=== PATIENT | female | born 1985 | race Caucasian/White ===

== ENCOUNTER 2018-01-22 16:05 | Inpatient (IN) | payer OTHER ==
[2018-01-22] MEDS ORDERED: Misoprostol TAB* 100 MCG PO ONE ×2 (18:29→22:18)
[2018-01-22] MEDS ORDERED: Misoprostol TAB* 100 MCG ONE (18:39)
--- NOTE | 2018-01-22 22:33 | HP ---
General Information - General Information Maternal Age: 32 Grav: 1 Para: 0 SAB: 0 IEA: 0 Estimated Due Date: 02/12/18 Determined By: Early Ultrasound Gestational Age in Weeks and Days: 37 Weeks and 0 Days Maternal Blood Type and Rh: O Positive - Results this Serology/RPR Result: Non-Reactive Rubella Result: Immune HBsAg Result: Negative HIV Result: Negative Past Medical History Delivery History: See Records - primip Pertinent Past Medical History: Non-Contributory Pertinent Past Surgical History: See Records - tonsillectomy Pertinent Family History: Non-Contributory Exam Allergies/Adverse Reactions: Allergies cephalexin Allergy (Verified 01/22/18 18:50) Unknown Reaction Details Bactrim Allergy (Uncoded 05/23/17 13:54) Unknown Reaction Details Lab Values - Entire Visit: Laboratory Tests 01/22/18 16:40 Vag Amniotic Fld Detect Positive - Measurements Height: 5 ft 6 in Weight: 69.853 kg Weight in lbs: 154 Body Mass Index (BMI): 24.8 Pre- Weight: 54.431 kg Weight Gained This : 34 lbs and 0 ozs
[2018-01-23] MEDS ORDERED: Promethazine INJ(RESTRICTED)* 25 MG/ML 1 ML VIAL IV ONE (00:44)
[2018-01-23] MEDS ORDERED: Nalbuphine* 20 MG/ML 1 ML VIAL IV ONE (00:45)
[2018-01-23] MEDS ORDERED: Promethazine INJ(RESTRICTED)* 25 MG/ML 1 ML VIAL ONE (00:52)
[2018-01-23] MEDS ORDERED: Nalbuphine* 20 MG/ML 1 ML VIAL ONE (00:52)
--- NOTE | 2018-01-23 01:02 | PN ---
Progress Note - Progress Note Date of Service: 01/23/18 SOAP: Subjective: [Pt reports ctx getting stronger, also feels more tired. Feels active FM. Requesting rx to help with sleep.] Objective: [VSS, afebrile FHR 135/ mod rashad/ accels present/ no decels Ctx every 3-5 minutes Cervical exam deferred d/t ruptured membranes ] Assessment: [PROM at 37 1/7 weeks gestation, for unknown duration of time, suspect occurred at 0300 2 days ago. No evidence of acidemia. Early labor.] Plan: [Will hold second dose of cytotec at this time, d/t contraction pattern. Discussed options with pt, including expectant management, Benadryl, therapeutic rest with Nubain and Phenergan. Pt would like to try Nubain and Phenergan. IV, labs, meds ordered. ]
[2018-01-23 01:14] LABS: Hematocrit 34 % (35-47); Hemoglobin 11.5 g/dl (12.0-16.0); Mean Corpuscular HGB Conc 34 g/dl (31-36); Mean Corpuscular Hemoglobin 32 pg (27-31); Mean Corpuscular Volume 93 fL (80-97); Mean Platelet Volume 10.2 um3 (7.4-10.4); Platelet Count 244 10^3/ul (150-450); Red Blood Count 3.62 10^6/ul (4.0-5.4); Red Cell Distribution Width 14 % (10.5-15)
[2018-01-23 01:21] LABS: ABS Basophils 0.1 10^3/ul (0-0.2); ABS Eosinophils 0.1 10^3/ul (0-0.6); ABS Lymphocytes 3.4 10^3/ul (1.0-4.8); ABS Monocytes 1.1 10^3/ul (0-0.8); ABS Neutrophils 10.3 10^3/ul (1.5-7.7)
[2018-01-23 01:54] LABS: ABS Nucleated RBC 0 10^3/ul; Eosinophil % 0.7 % (0-6); Lymphocyte % 22.5 % (25-47); Nucleated Red Blood Cells % 0.1
[2018-01-23] MEDS ORDERED: Penicillin G Potassium IV* 5,000,000 UNITS in NS 0.9% 100 ML* 100 ML IVPB ONE (11:30)
[2018-01-23] MEDS ORDERED: OBEPIDURAL* 250 ML EPIDURAL ONE (13:19)
[2018-01-23] MEDS ORDERED: Phenylephrine IV* 40 MCG/ML 10 ML SYRINGE IV PUSH PRN ×2 (15:07)
[2018-01-23] MEDS ORDERED: Famotidine TAB* 20 MG PO PRN (15:07)
[2018-01-23] MEDS ORDERED: Sodium Citrate/Citric Acid* 15 ML UDC PO PRN (15:07)
[2018-01-23] MEDS ORDERED: Penicillin G Potassium IV* 2,500,000 UNITS in NS 0.9% 100 ML* 100 ML IVPB SCH (16:00)
[2018-01-23] MEDS ORDERED: OBEPIDURAL* 250 ML EPIDURAL SCH (16:00)
[2018-01-23] MEDS ORDERED: SODIUM CHLORIDE IV ONE (16:15)
[2018-01-23] MEDS ORDERED: HETASTARCH 6% IV ONE (16:15)
[2018-01-23] MEDS ORDERED: Oxytocin in LR* 20 UNITS/1,000 ML BAG IVPB ONE (18:06)
[2018-01-23] MEDS ORDERED: Oxytocin in LR* 20 UNITS/1,000 ML BAG IVPB SCH ×2 (19:00→20:02)
[2018-01-23] MEDS ORDERED: Dibucaine 1% 28.35 GM TUBE PR PRN (19:59)
[2018-01-23] MEDS ORDERED: Glycerin ADULT SUPP PR PRN (19:59)
[2018-01-23] MEDS ORDERED: Acetaminophen TAB* 325 MG PO PRN (19:59)
[2018-01-23] MEDS: Ibuprofen TAB* 600 MG PO PRN (21:01)
[2018-01-23] MEDS: Docusate CAP* 100 MG PO SCH (22:30)
[2018-01-23] MEDS: Witch Hazel PAD* JAR TOPICAL PRN (22:30)
[2018-01-24] MEDS: Ibuprofen TAB* 600 MG PO PRN ×3 (03:47→18:39)
[2018-01-24 06:33] LABS: Hematocrit 27 % (35-47); Hemoglobin 9.2 g/dl (12.0-16.0); Mean Corpuscular HGB Conc 34 g/dl (31-36); Mean Corpuscular Hemoglobin 32 pg (27-31); Mean Corpuscular Volume 93 fL (80-97); Mean Platelet Volume 9.8 um3 (7.4-10.4); Platelet Count 205 10^3/ul (150-450); Red Blood Count 2.91 10^6/ul (4.0-5.4); Red Cell Distribution Width 15 % (10.5-15); White Blood Count 25.1 10^3/ul (3.5-10.8)
[2018-01-24 06:58] LABS: Monocytes % 1 % (0-7); Tear Drop Cells 1+
[2018-01-24] MEDS: Docusate CAP* 100 MG PO SCH ×3 (10:23→21:25)
[2018-01-24] MEDS: Ferrous Gluconate TAB* 324 MG TAB PO SCH ×2 (10:23→21:24)
[2018-01-25 07:40] VITALS: BP 115/66
[2018-01-25] MEDS: Ibuprofen TAB* 600 MG PO PRN (08:15)
[2018-01-25] MEDS: Docusate CAP* 100 MG PO SCH (08:16)
[2018-01-25] MEDS: Ferrous Gluconate TAB* 324 MG TAB PO SCH (08:16)
[2018-01-25] MEDS: Witch Hazel PAD* JAR TOPICAL PRN (08:26)
== END 2018-01-25 13:06 | disposition home or self-care (01) | DRG 560 ==
LOC: MCHOBOUT 16:05 → MCHOB 17:55
PROVIDERS: ADMIT Midwife; ATTEND Midwife
PROC: 0HQ9XZZ Repair Perineum Skin, External Approach (ICD-10-PCS; principal; 2018-01-22)
PROC: 4A1HX4Z Monitoring of Products of Conception, Cardiac Electrical Activity, External Approach (ICD-10-PCS; 2018-01-22)
PROC: 10E0XZZ Delivery of Products of Conception, External Approach (ICD-10-PCS; 2018-01-22)
DX: O42.02 Full-term premature rupture of membranes, onset of labor within 24 hours of rupture (principal); O69.81X0 Labor and delivery complicated by cord around neck, without compression, not applicable or unspecified; Z88.1 Allergy status to other antibiotic agents; Z3A.37 37 weeks gestation of pregnancy; Z37.0 Single live birth; O90.81 Anemia of the puerperium; O70.0 First degree perineal laceration during delivery
CPT/HCPCS: 36415; 84112; 85025; 86850; 86900; 86901; A9270-GY; J2300; J2540; J2550; S0191